=== PATIENT | female | born 1955 | race Caucasian/White ===

== ENCOUNTER 2016-12-04 07:56 | Day surgery (SDC) | payer BC, OTHER ==
[2016-11-27 10:16] LABS: APPEARANCE,URINE CLEAR; BILIRUBIN,URINE NEGATIVE (NEGATIVE); GLUCOSE, URINE NEGATIVE (NEGATIVE); KETONES,URINE NEGATIVE (NEGATIVE); LEUKOCYTE ESTERASE,URINE NEGATIVE (NEGATIVE); NITRITE,URINE NEGATIVE (NEGATIVE); PROTEIN,URINE NEGATIVE (NEGATIVE); URINE SPECIFIC GRAVITY 1.009; UROBILINOGEN,URINE NEGATIVE mg/dL (<2.0)
[2016-11-27 10:17] LABS: ABSOLUTE BASOPHILS # (AUTO) 0.1 10^3/uL (0.0-0.2); ABSOLUTE EOSINOPHILS # (AUTO) 0.2 10^3/uL (0.0-0.6); ABSOLUTE LYMPHOCYTES (AUTO) 3.1 10^3/uL (0.5-4.7); ABSOLUTE MONOCYTES (AUTO) 0.6 10^3/uL (0.1-1.4); ABSOLUTE NEUT (AUTO) 3.5 10^3/uL (1.7-8.2); EOSINOPHILS % (AUTO) 2.2 % (0-6); HEMATOCRIT 44.1 % (36.0-47.0); HEMOGLOBIN 14.7 g/dL (12.0-15.5); LYMPHOCYTES % (AUTO) 41.9 % (13-45); MEAN CORPUSCULAR HEMOGLOBIN 30.3 pg (27.0-33.4); MEAN CORPUSCULAR HGB CONC 33.4 g/dL (32.0-36.0); MEAN CORPUSCULAR VOLUME 91 fl (80-97); MONOCYTES % (AUTO) 7.5 % (3-13); RED BLOOD COUNT 4.86 10^6/uL (3.72-5.28); RED CELL DISTRIBUTION WIDTH 13.1 % (11.5-14.0); SEGMENTED NEUTROPHILS % (AUTO) 47.4 % (42-78); WHITE BLOOD COUNT 7.5 10^3/uL (4.0-10.5)
[2016-11-27 10:36] LABS: ANION GAP 11 (5-19); BLOOD UREA NITROGEN 18 mg/dL (7-20); CALCIUM 9.8 mg/dL (8.4-10.2); CARBON DIOXIDE 28 mmol/L (22-30); CHLORIDE 103 mmol/L (98-107); CREATININE RESULT 0.91 mg/dL (0.52-1.25); GLUCOSE 63 mg/dL (75-110); POTASSIUM 5.3 mmol/L (3.6-5.0)
--- NOTE | 2016-11-27 13:00 | EKG REPORT ---
SEVERITY:- OTHERWISE NORMAL ECG - SINUS BRADYCARDIA : Confirmed by: Jeremie Hagen MD 27-Nov-2016 12:59:13
--- NOTE | 2016-11-27 13:24 | RADIOLOGY REPORT (SQ) ---
EXAM DESCRIPTION: CHEST PA/LATERAL COMPLETED DATE/TIME: 11/27/2016 9:50 am REASON FOR STUDY: PRE OP COMPARISON: 12/02/2012, 12/14/2013 EXAM PARAMETERS: NUMBER OF VIEWS: two views TECHNIQUE: Digital Frontal and Lateral radiographic views of the chest acquired. RADIATION DOSE: NA LIMITATIONS: none FINDINGS: LUNGS AND PLEURA: No opacities, masses or pneumothorax. No pleural effusion. MEDIASTINUM AND HILAR STRUCTURES: No masses or contour abnormalities. HEART AND VASCULAR STRUCTURES: Heart normal size. No evidence for failure. BONES: No acute findings. HARDWARE: None in the chest. OTHER: No other significant finding. IMPRESSION: NO SIGNIFICANT RADIOGRAPHIC FINDING IN THE CHEST. TECHNICAL DOCUMENTATION: JOB ID: [id number] [employer]- All Rights Reserved
[~2016-12-04 07:56] MED LIST: CLINDAMYCIN 600 MG/D5W RTU 600 MG/50 ML RTUPB IV PRN; LACTATED RINGERS 1000 ML IV PRN; LIDOCAINE 0.5% INJ-PF (5 MG/ML) 50 ML SDV SUBCUT PRN
[2016-12-04] MEDS ORDERED: MIDAZOLAM 2 MG/2 ML INJ ONE (09:09)
[2016-12-04] MEDS ORDERED: PROPOFOL INJ 200 MG/20 ML VIAL IV ONE ×2 (09:10→09:11)
[2016-12-04] MEDS ORDERED: FENTANYL CITRATE INJ/PF 100 MCG/2 ML AMPUL ONE ×2 (09:10→10:54)
[2016-12-04] MEDS ORDERED: KETAMINE HCL INJ 500 MG/10 ML VIAL ONE (09:10)
[2016-12-04] MEDS ORDERED: ACETAMINOPHEN 100 ML IV ONE (09:10)
[2016-12-04] MEDS: LIDOCAINE 2%/EPINEPHRINE INJ 20 ML VIAL ONE ×2 (09:39→10:15)
[2016-12-04] MEDS: BUPIVACAINE HCL 0.5 % INJ/PF 30 ML SDV ONE ×2 (09:39→10:15)
[2016-12-04] MEDS ORDERED: MEPERIDINE HCL/PF INJ 25 MG/1 ML DISP.SYRIN IV PRN (10:14)
[2016-12-04] MEDS ORDERED: PROMETHAZINE HCL INJ 25 MG/1 ML VIAL IV PRN ×2 (10:14)
[2016-12-04] MEDS ORDERED: OXYCODONE-ACETAMINOPHEN 5-325 MG TABLET PO PRN ×2 (10:14)
[2016-12-04] MEDS ORDERED: FENTANYL CITRATE INJ/PF 100 MCG/2 ML AMPUL IV PRN ×3 (10:14)
[2016-12-04] MEDS ORDERED: MORPHINE SULFATE 10 MG/ML INJ IV PRN (10:14)
[2016-12-04] MEDS ORDERED: DIPHENHYDRAMINE HCL 50 MG/ML VIAL IV PRN (10:14)
--- NOTE | 2016-12-04 10:36 | Operative Report ---
Operative Report DATE OF SURGERY: 12/04/16 PREOPERATIVE DIAGNOSIS: Left medial meniscal tear POSTOPERATIVE DIAGNOSIS: Left medial meniscal tear. 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 Intact ACL. Grade 2 chondral malacia lateral compartment. Lateral meniscal tear. Grade II chondromalacia of patellofemoral compartment OPERATION: Arthroscopic partial left medial and lateral meniscectomies, and abrasion chondroplasty of the medial compartment SURGEON: JUNE ARREDONDO ANESTHESIA: LMAC ESTIMATED BLOOD LOSS: Minimal PROCEDURE: With the patient supine on the operating table left lower extremities prepped and draped in sterile fashion. The knee is insufflated with combination of Marcaine, Xylocaine, and epinephrine. Subsequently medial lateral patella portals are created from the obstruction the arthroscope and debridement mentation. Joint is examined in systematic fashion findings as above. Using combination of basket Rowan, mechanical shaver, elective frequency ablation probable partial medial meniscectomy was performed from approximately 7:00 to 12 :00 on the face with Dial. An abrasion chondroplasty of the medial femoral condyle medial tibial plateau was performed. Next a partial lateral meniscectomy was performed using the electric frequency ablation probe from approximately 5:00 to 12:00 on the face with Dial. At this point the joint is examined in systematic fashion with no new findings. Instrumentation was removed. The portals closed with interrupted nylon. A sterile compressive dressing was applied. Patient's return to the PACU in satisfactory condition.
[2016-12-04] MEDS ORDERED: ONDANSETRON HCL INJ/PF 4 MG/2 ML SDV ONE (11:59)
[2016-12-04] MEDS ORDERED: ONDANSETRON HCL INJ/PF 4 MG/2 ML SDV IV ONE (12:00)
[2016-12-04 13:05] VITALS: BP 119/71
[2016-12-04] MEDS ORDERED: LIDOCAINE 2% INJ-PF (20 MG/ML) 10 ML AMPUL ONE (13:10)
== END 2016-12-04 12:55 | disposition home or self-care (01) ==
LOC: OROUT 07:56
PROVIDERS: ATTEND Orthopaedic Surgery
PROC: 0SBD4ZZ Excision of Left Knee Joint, Percutaneous Endoscopic Approach (ICD-10-PCS; 2016-12-04)
PROC: 0SBD4ZZ Excision of Left Knee Joint, Percutaneous Endoscopic Approach (ICD-10-PCS; principal; 2016-12-04 09:45)
DX: M23.204 Derangement of unspecified medial meniscus due to old tear or injury, left knee (principal); M22.42 Chondromalacia patellae, left knee; I10 Essential (primary) hypertension; K21.9 Gastro-esophageal reflux disease without esophagitis; R01.1 Cardiac murmur, unspecified; E66.9 Obesity, unspecified; E07.9 Disorder of thyroid, unspecified; I47.2 Ventricular tachycardia; Z88.0 Allergy status to penicillin; Z79.899 Other long term (current) drug therapy; Z68.34 Body mass index [BMI] 34.0-34.9, adult; Z87.891 Personal history of nicotine dependence
CPT/HCPCS: 29880; 93005; 36415; 85025; 80048; 81001; 71020; 93010; J2250; J3010; J3490 ×3; J2405; J2704; J0131; 1400